=== PATIENT | female | born 1955 | race Caucasian/White ===

== ENCOUNTER 2018-01-29 16:54 | Inpatient (IN) | payer MEDICAID ==
[~2018-01-29] VITALS: Ht 160 cm; Wt 92.9 kg
[2018-01-29] MEDS ORDERED: SODIUM CHLORIDE 0.9% 1,000 ML IV ONE ×2 (17:07→18:46)
[2018-01-29] MEDS ORDERED: PLEASE ENTER HEIGHT AND WEIGHT MC SCH (17:30)
[2018-01-29] MEDS ORDERED: SODIUM CHLORIDE 0.9% 1,000ML IVBOLUS ONE ×2 (17:30→18:30)
[2018-01-29] MEDS ORDERED: NALOXONE 1 MG/ML, 2ML IVPush ONE (17:30)
[2018-01-29] MEDS: PLEASE ENTER ALLERGIES MC SCH (17:30)
[2018-01-29 17:45] LABS: BASOPHILS % (AUTO) 0 % (0-1); EOSINOPHILS # (AUTO) 0.01 x10^3/uL (0-0.4); EOSINOPHILS % (AUTO) 0 % (1-7); LYMPHOCYTES # (AUTO) 0.74 x10^3/uL (1-3.4); LYMPHOCYTES % (AUTO) 5 % (22-44); MD NO; MEAN CORPUSCULAR HEMOGLOBIN 29.7 pg (27.0-34.8); MEAN CORPUSCULAR HGB CONC 32.8 g/dL (32.4-35.8); MEAN CORPUSCULAR VOLUME 90.7 fL (80-100); MEAN PLATELET VOLUME 8.2 fL (7.4-10.4); MONOCYTES # (AUTO) 0.17 x10^3/uL (0.2-0.8); MONOCYTES % (AUTO) 1 % (2-9); NEUTROPHILS % (AUTO) 94 % (42-75); PLATELET COUNT 314 x10^3/uL (130-400); RED BLOOD COUNT 4.58 x10^6/uL (3.82-5.3); RED CELL DISTRIBUTION WIDTH 14.6 % (9.6-15.2)
[2018-01-29 17:47] LABS: ALANINE AMINOTRANSFERASE 20 U/L (12-78); ALBUMIN 3.7 g/dL (3.4-5.0); ANION GAP 6 mmol/L (5-15); CALCIUM 8.7 mg/dL (8.5-10.1); CHLORIDE 114 mmol/L (98-107); SALICYLATE LEVEL < 1.7 mg/dL (2.8-20.0)
[2018-01-29 17:51] LABS: ALKALINE PHOSPHATASE 103 U/L (45-117); BILIRUBIN,TOTAL 0.2 mg/dL (0.2-1.0); TOTAL PROTEIN 7.6 g/dL (6.4-8.2)
[2018-01-29] MEDS ORDERED: HYDR25CA PO (17:51)
[2018-01-29] MEDS ORDERED: BACL-19 PO (17:51)
[2018-01-29] MEDS ORDERED: TIOT18CA INH (17:51)
[2018-01-29 17:52] LABS: ACETAMINOPHEN < 2 mcg/mL (10-30)
[2018-01-29] MEDS ORDERED: NALOXONE 0.4 MG/ML, 1ML IVPush ONE (18:00)
[2018-01-29] MEDS ORDERED: NALOXONE 2 MG in SODIUM CHLORIDE 0.9% 250 ML IV SCH (18:00)
[2018-01-29] MEDS ORDERED: SODIUM CHLORIDE FLUSH 10ML SYR IVF PRN (19:00)
[2018-01-29] MEDS ORDERED: ONDANSETRON ODT 4 MG PO PRN (19:30)
[2018-01-29] MEDS ORDERED: morphine SULFATE 10 MG/ML, 1ML IVPush PRN (19:30)
[2018-01-29] MEDS ORDERED: BISACODYL 10 MG SUPP PR PRN (19:30)
[2018-01-29] MEDS ORDERED: ONDANSETRON 2MG/ML, 2ML IVPush PRN (19:30)
[2018-01-29] MEDS ORDERED: OXYcodone IR 5MG TABLET PO PRN (19:30)
[2018-01-29 19:43] LABS: FREE T4 (FREE THYROXINE) 1.05 ng/dL (0.76-1.46); THYROID STIMULATING HORMONE 5.08 mIU/L (0.358-3.740)
[2018-01-29 19:46] LABS: HEMOGLOBIN A1C 5.9 % (4.2-6.3)
[2018-01-29 19:52] LABS: MICROSCOPIC INDICATED
[2018-01-29] MEDS ORDERED: NALOXONE 4 MG in SODIUM CHLORIDE 0.9% 246 ML IV SCH (20:00)
[2018-01-29 20:01] LABS: CULTURE INDICATED? NO
[2018-01-29 20:10] LABS: AMPHETAMINE SCREEN, URINE Negative (Negative); BARBITURATE SCREEN, URINE Negative (Negative); BENZODIAZEPINE SCREEN, URINE Negative (Negative); CANNABINOID SCREEN, URINE Negative (Negative); COCAINE SCREEN, URINE Negative (Negative); METHADONE SCREEN, URINE Negative (Negative); OPIATE SCREEN, URINE Positive (Negative)
[2018-01-29 21:00] VITALS: BP 131/63
[2018-01-29] MEDS: SODIUM CHLORIDE 0.9% 1,000 ML IV SCH (21:43)
[2018-01-29] MEDS: ACETAMINOPHEN 325 MG TABLET PO PRN (21:44)
[2018-01-29] MEDS: SODIUM CHLORIDE 0.9% IV SCH (21:46)
[2018-01-29] MEDS: NALOXONE IV SCH (21:46)
[2018-01-29] MEDS: HEPARIN 5,000 UNITS/ML, 1ML SQ SCH (21:46)
[2018-01-30] MEDS: PLEASE ENTER ALLERGIES MC SCH (01:30)
[2018-01-30] MEDS: HEPARIN 5,000 UNITS/ML, 1ML SQ SCH ×3 (03:35→19:55)
[2018-01-30] MEDS: NALOXONE IV SCH ×2 (03:46→08:08)
[2018-01-30] MEDS: SODIUM CHLORIDE 0.9% IV SCH ×2 (03:46→08:08)
[2018-01-30] MEDS: SODIUM CHLORIDE 0.9% 1,000 ML IV SCH (03:47)
[2018-01-30 03:50] VITALS: BP 160/81
[2018-01-30 04:50] LABS: ALANINE AMINOTRANSFERASE 18 U/L (12-78); ALBUMIN 3.1 g/dL (3.4-5.0); ANION GAP 7 mmol/L (5-15); CALCIUM 8.2 mg/dL (8.5-10.1); CHLORIDE 117 mmol/L (98-107)
[2018-01-30 04:53] LABS: ALKALINE PHOSPHATASE 88 U/L (45-117); BILIRUBIN,TOTAL 0.3 mg/dL (0.2-1.0); CHOL/HDL RATIO 3.1; CHOLESTEROL, TOTAL 131 mg/dL (140-239); CREATININE 1.25 mg/dL (0.55-1.02); HDL CHOL % 32 % (28-40); HDL CHOLESTEROL (DIRECT) 42 mg/dL (40-60); LDL CHOLESTEROL,CALCULATED 64 mg/dL (54-169); LDL/HDL RATIO 1.5 (0.5-3.0); TOTAL PROTEIN 6.4 g/dL (6.4-8.2); TRIGLYCERIDES 126 mg/dL (50-200); VLDL CHOLESTEROL 25 mg/dL (0-25)
[2018-01-30 05:07] LABS: BASOPHILS # (AUTO) 0.04 x10^3/uL (0-0.1); BASOPHILS % (AUTO) 0 % (0-1); EOSINOPHILS # (AUTO) 0.07 x10^3/uL (0-0.4); EOSINOPHILS % (AUTO) 1 % (1-7); LYMPHOCYTES # (AUTO) 2.74 x10^3/uL (1-3.4); LYMPHOCYTES % (AUTO) 22 % (22-44); MD NO; MEAN CORPUSCULAR HEMOGLOBIN 29.9 pg (27.0-34.8); MEAN CORPUSCULAR HGB CONC 32.7 g/dL (32.4-35.8); MEAN CORPUSCULAR VOLUME 91.5 fL (80-100); MEAN PLATELET VOLUME 8.1 fL (7.4-10.4); MONOCYTES # (AUTO) 0.82 x10^3/uL (0.2-0.8); MONOCYTES % (AUTO) 7 % (2-9); NEUTROPHILS # (AUTO) 8.61 x10^3/uL (1.8-6.8); NEUTROPHILS % (AUTO) 70 % (42-75); PLATELET COUNT 259 x10^3/uL (130-400); RED BLOOD COUNT 3.93 x10^6/uL (3.82-5.3); RED CELL DISTRIBUTION WIDTH 14.3 % (9.6-15.2)
[2018-01-30] MEDS: IPRATROPIUM 0.5 MG/2.5 ML INHA NPPB SCH ×3 (07:25→19:14)
[2018-01-30] MEDS: SENNA/DOCUSATE TABLET PO SCH (09:00)
[2018-01-30] MEDS ORDERED: NALOXONE 0.4 MG/ML, 1ML IVPush PRN (17:30)
[2018-01-31] VITALS (8 sets, daily range): BP systolic 129–186; BP diastolic 63–99
[2018-01-31] MEDS: HEPARIN 5,000 UNITS/ML, 1ML SQ SCH ×3 (03:51→19:52)
[2018-01-31 05:41] LABS: BASOPHILS # (AUTO) 0.03 x10^3/uL (0-0.1); BASOPHILS % (AUTO) 0 % (0-1); EOSINOPHILS # (AUTO) 0.33 x10^3/uL (0-0.4); EOSINOPHILS % (AUTO) 3 % (1-7); LYMPHOCYTES # (AUTO) 2.47 x10^3/uL (1-3.4); LYMPHOCYTES % (AUTO) 25 % (22-44); MD NO; MEAN CORPUSCULAR HEMOGLOBIN 29.7 pg (27.0-34.8); MEAN CORPUSCULAR HGB CONC 32.5 g/dL (32.4-35.8); MEAN CORPUSCULAR VOLUME 91.4 fL (80-100); MEAN PLATELET VOLUME 8.5 fL (7.4-10.4); MONOCYTES # (AUTO) 0.64 x10^3/uL (0.2-0.8); MONOCYTES % (AUTO) 6 % (2-9); NEUTROPHILS # (AUTO) 6.53 x10^3/uL (1.8-6.8); NEUTROPHILS % (AUTO) 65 % (42-75); PLATELET COUNT 248 x10^3/uL (130-400); RED BLOOD COUNT 4.03 x10^6/uL (3.82-5.3); RED CELL DISTRIBUTION WIDTH 14.8 % (9.6-15.2)
[2018-01-31 05:47] LABS: ALBUMIN 3.1 g/dL (3.4-5.0); ANION GAP 7 mmol/L (5-15); CALCIUM 8.3 mg/dL (8.5-10.1); CHLORIDE 111 mmol/L (98-107)
[2018-01-31 05:58] LABS: ALANINE AMINOTRANSFERASE 17 U/L (12-78); ALKALINE PHOSPHATASE 93 U/L (45-117); BILIRUBIN,TOTAL 0.3 mg/dL (0.2-1.0); CREATININE 0.93 mg/dL (0.55-1.02); TOTAL PROTEIN 6.5 g/dL (6.4-8.2)
[2018-01-31] MEDS ORDERED: ENAL20TA PO (08:13)
[2018-01-31] MEDS ORDERED: AMLO10TA2 PO (08:16)
[2018-01-31] MEDS ORDERED: simvastatin PO (08:18)
[2018-01-31] MEDS ORDERED: ZOLP10TA PO (08:18)
[2018-01-31] MEDS: hydrALAzine 20 MG/ML, 1ML IVPush PRN ×2 (08:25→19:51)
[2018-01-31] MEDS: SENNA/DOCUSATE TABLET PO SCH (08:27)
[2018-01-31] MEDS: AMLODIPINE 5 MG TABLET PO SCH (10:01)
[2018-01-31] MEDS: ENALAPRIL 20MG TABLET PO SCH (10:01)
[2018-01-31] MEDS: IPRATROPIUM 0.5 MG/2.5 ML INHA NPPB SCH ×3 (10:20→21:35)
[2018-01-31] MEDS: ACETAMINOPHEN 325 MG TABLET PO PRN (14:24)
[2018-01-31] MEDS: POLYETHYLENE GLYCOL 17 GM PACKET PO PRN (14:24)
[2018-01-31] MEDS ORDERED: TRAZODONE 50MG TABLET PO PRN (18:30)
[2018-01-31] MEDS: BACLOFEN 10 MG TABLET PO PRN (20:18)
[2018-02-01 00:31] VITALS: BP 129/78
[2018-02-01] MEDS: IPRATROPIUM 0.5 MG/2.5 ML INHA NPPB SCH ×2 (03:00→09:32)
[2018-02-01] MEDS: HEPARIN 5,000 UNITS/ML, 1ML SQ SCH ×2 (03:38→12:04)
[2018-02-01] MEDS: ACETAMINOPHEN 325 MG TABLET PO PRN (03:40)
[2018-02-01 07:25] VITALS: BP 145/76
[2018-02-01] MEDS: POLYETHYLENE GLYCOL 17 GM PACKET PO PRN (08:42)
[2018-02-01] MEDS: BACLOFEN 10 MG TABLET PO PRN (08:42)
[2018-02-01] MEDS: SENNA/DOCUSATE TABLET PO SCH (08:42)
[2018-02-01] MEDS: ENALAPRIL 20MG TABLET PO SCH (08:42)
[2018-02-01] MEDS: AMLODIPINE 5 MG TABLET PO SCH (08:42)
[2018-02-01 14:00] VITALS: BP 136/73
== END 2018-02-01 14:15 | disposition home or self-care (01) | DRG 917 ==
LOC: ED 17:57 → EDIP 18:46 → CCU 20:11 → ICU 01-30 16:54 → 4NOR 01-30 23:55
PROVIDERS: ADMIT Internal Medicine; ATTEND Internal Medicine
DX: T42.8X1A Poisoning by antiparkinsonism drugs and other central muscle-tone depressants, accidental (unintentional), initial encounter (principal); J96.00 Acute respiratory failure, unspecified whether with hypoxia or hypercapnia; G92 Toxic encephalopathy; F41.9 Anxiety disorder, unspecified; D72.829 Elevated white blood cell count, unspecified; M54.9 Dorsalgia, unspecified; J44.9 Chronic obstructive pulmonary disease, unspecified; M62.838 Other muscle spasm; G47.00 Insomnia, unspecified; F15.90 Other stimulant use, unspecified, uncomplicated; F11.90 Opioid use, unspecified, uncomplicated; Y92.89 Other specified places as the place of occurrence of the external cause
CPT/HCPCS: 36415; 70450; 71045; 80053; 80061; 80307; 80329; 81001; 82140; 82375; 82550; 83036; 83735; 84100; 84439; 84443; 85025; 87081; 93005; 94640; 96361; 96365; 96376; J1644; J2310; J7644; Q0162; G0480; J0360; J7030; J7050

== ENCOUNTER 2018-02-03 15:31 | Inpatient (IN) | payer MEDICAID ==
[~2018-02-03] VITALS: Ht 162.6 cm; Wt 90.4 kg
[~2018-02-03 15:31] MED LIST: AMLO10TA2 PO; BACL-19 PO; ENAL20TA PO; HYDR25CA PO; TIOT18CA INH; ZOLP10TA PO; simvastatin PO
[2018-02-03 16:27] LABS: BASOPHILS # (AUTO) 0.09 x10^3/uL (0-0.1); BASOPHILS % (AUTO) 1 % (0-1); EOSINOPHILS # (AUTO) 0.06 x10^3/uL (0-0.4); EOSINOPHILS % (AUTO) 0 % (1-7); LYMPHOCYTES # (AUTO) 1.36 x10^3/uL (1-3.4); LYMPHOCYTES % (AUTO) 10 % (22-44); MD NO; MEAN CORPUSCULAR HEMOGLOBIN 29.7 pg (27.0-34.8); MEAN CORPUSCULAR HGB CONC 32.8 g/dL (32.4-35.8); MEAN CORPUSCULAR VOLUME 90.5 fL (80-100); MEAN PLATELET VOLUME 8.5 fL (7.4-10.4); MONOCYTES # (AUTO) 0.93 x10^3/uL (0.2-0.8); MONOCYTES % (AUTO) 7 % (2-9); NEUTROPHILS # (AUTO) 11.55 x10^3/uL (1.8-6.8); NEUTROPHILS % (AUTO) 83 % (42-75); PLATELET COUNT 284 x10^3/uL (130-400); RED BLOOD COUNT 4.18 x10^6/uL (3.82-5.3); RED CELL DISTRIBUTION WIDTH 14.1 % (9.6-15.2)
[2018-02-03 16:29] LABS: ALBUMIN 3.8 g/dL (3.4-5.0); ANION GAP 9 mmol/L (5-15); CHLORIDE 106 mmol/L (98-107)
[2018-02-03 16:33] LABS: ALANINE AMINOTRANSFERASE 45 U/L (12-78); ALKALINE PHOSPHATASE 105 U/L (45-117); BILIRUBIN,TOTAL 0.4 mg/dL (0.2-1.0); CREATININE 2.47 mg/dL (0.55-1.02); SALICYLATE LEVEL < 1.7 mg/dL (2.8-20.0); TOTAL PROTEIN 7.5 g/dL (6.4-8.2)
[2018-02-03 16:34] LABS: ACETAMINOPHEN < 2 mcg/mL (10-30)
[2018-02-03 16:43] LABS: CULTURE INDICATED? YES; MICROSCOPIC INDICATED
[2018-02-03] MEDS ORDERED: SODIUM CHLORIDE 0.9% 1,000 ML IV ONE (16:47)
[2018-02-03 16:53] LABS: AMPHETAMINE SCREEN, URINE Negative (Negative); BARBITURATE SCREEN, URINE Negative (Negative); BENZODIAZEPINE SCREEN, URINE Negative (Negative); CANNABINOID SCREEN, URINE Negative (Negative); COCAINE SCREEN, URINE Negative (Negative); METHADONE SCREEN, URINE Negative (Negative); OPIATE SCREEN, URINE Positive (Negative)
[2018-02-03] MEDS ORDERED: SODIUM CHLORIDE 0.9% 1,000ML IVBOLUS ONE (17:00)
[2018-02-03] MEDS ORDERED: POLYETHYLENE GLYCOL 17 GM PACKET PO PRN (18:30)
[2018-02-03] MEDS ORDERED: BISACODYL 10 MG SUPP PR PRN (18:30)
[2018-02-03] MEDS ORDERED: ACETAMINOPHEN 325 MG TABLET PO PRN (18:30)
[2018-02-03] MEDS ORDERED: DOCUSATE 100 MG CAPSULE PO PRN (18:30)
[2018-02-03] MEDS ORDERED: ONDANSETRON 2MG/ML, 2ML IVPush PRN (18:30)
[2018-02-03] MEDS ORDERED: hydrALAzine 20 MG/ML, 1ML ONE (18:53)
[2018-02-03] MEDS: hydrALAzine 20 MG/ML, 1ML IVPush PRN (18:58)
[2018-02-03 23:46] VITALS: BP 153/86
[2018-02-04] MEDS: NS + 20MEQ KCL 1,000 ML IV SCH ×3 (00:56→21:53)
[2018-02-04 01:46] VITALS: BP 132/68
[2018-02-04 04:03] VITALS: BP 138/82
[2018-02-04 05:47] LABS: BASOPHILS # (AUTO) 0.05 x10^3/uL (0-0.1); BASOPHILS % (AUTO) 1 % (0-1); EOSINOPHILS # (AUTO) 0.12 x10^3/uL (0-0.4); EOSINOPHILS % (AUTO) 1 % (1-7); LYMPHOCYTES # (AUTO) 1.96 x10^3/uL (1-3.4); LYMPHOCYTES % (AUTO) 21 % (22-44); MD NO; MEAN CORPUSCULAR HEMOGLOBIN 29.7 pg (27.0-34.8); MEAN CORPUSCULAR HGB CONC 33.2 g/dL (32.4-35.8); MEAN CORPUSCULAR VOLUME 89.4 fL (80-100); MEAN PLATELET VOLUME 8.4 fL (7.4-10.4); MONOCYTES # (AUTO) 0.78 x10^3/uL (0.2-0.8); MONOCYTES % (AUTO) 9 % (2-9); NEUTROPHILS # (AUTO) 6.28 x10^3/uL (1.8-6.8); NEUTROPHILS % (AUTO) 68 % (42-75); PLATELET COUNT 268 x10^3/uL (130-400); RED BLOOD COUNT 3.95 x10^6/uL (3.82-5.3); RED CELL DISTRIBUTION WIDTH 14.3 % (9.6-15.2)
[2018-02-04 05:54] LABS: ALANINE AMINOTRANSFERASE 37 U/L (12-78); ALBUMIN 3.1 g/dL (3.4-5.0); ANION GAP 7 mmol/L (5-15); CALCIUM 8.6 mg/dL (8.5-10.1); CHLORIDE 111 mmol/L (98-107); CREATININE 1.17 mg/dL (0.55-1.02)
[2018-02-04 05:56] LABS: ALKALINE PHOSPHATASE 91 U/L (45-117); BILIRUBIN,TOTAL 0.5 mg/dL (0.2-1.0); CREATINE KINASE, TOTAL 712 U/L (26-192); TOTAL PROTEIN 6.6 g/dL (6.4-8.2)
[2018-02-04] MEDS: HEPARIN 5,000 UNITS/ML, 1ML SQ SCH ×3 (05:59→21:29)
[2018-02-04 07:13] VITALS: BP 145/86
[2018-02-04] MEDS: AMLODIPINE 5 MG TABLET PO SCH (08:41)
[2018-02-04] MEDS: FLUTICASONE/VILANTEROL 200-25MCG/INH INH SCH (08:42)
[2018-02-04] MEDS: ENALAPRIL 20MG TABLET PO SCH (08:42)
[2018-02-04 13:10] VITALS: BP 189/98
[2018-02-04] MEDS: HYDROXYZINE PAMOATE 25MG CAP PO PRN (13:11)
[2018-02-04] MEDS: hydrALAzine 20 MG/ML, 1ML IVPush PRN ×2 (13:17→22:38)
[2018-02-04 21:58] VITALS: BP 173/94
[2018-02-04 23:53] VITALS: BP 169/91
[2018-02-05 03:15] VITALS: BP 184/88
[2018-02-05] MEDS: hydrALAzine 20 MG/ML, 1ML IVPush PRN (03:26)
[2018-02-05] MEDS: HYDROXYZINE PAMOATE 25MG CAP PO PRN ×2 (03:26→18:07)
[2018-02-05 04:37] VITALS: BP 169/97
[2018-02-05 05:51] LABS: ANION GAP 9 mmol/L (5-15); CHLORIDE 112 mmol/L (98-107)
[2018-02-05 05:52] LABS: CALCIUM 9.2 mg/dL (8.5-10.1); CREATININE 0.79 mg/dL (0.55-1.02)
[2018-02-05] MEDS: HEPARIN 5,000 UNITS/ML, 1ML SQ SCH ×3 (06:28→21:15)
[2018-02-05 08:51] VITALS: BP 175/83
[2018-02-05] MEDS: ENALAPRIL 20MG TABLET PO SCH (08:57)
[2018-02-05] MEDS: FLUTICASONE/VILANTEROL 200-25MCG/INH INH SCH (08:57)
[2018-02-05] MEDS: AMLODIPINE 5 MG TABLET PO SCH (08:57)
[2018-02-05 13:50] VITALS: BP 142/84
[2018-02-05 18:55] VITALS: BP 143/89
[2018-02-06 01:35] VITALS: BP 148/90
[2018-02-06 05:49] LABS: CHLORIDE 111 mmol/L (98-107)
[2018-02-06 05:57] LABS: ANION GAP 8 mmol/L (5-15); CALCIUM 8.7 mg/dL (8.5-10.1); CREATININE 0.86 mg/dL (0.55-1.02)
[2018-02-06] MEDS: HEPARIN 5,000 UNITS/ML, 1ML SQ SCH (06:36)
[2018-02-06 07:38] VITALS: BP 163/83
[2018-02-06] MEDS: FLUTICASONE/VILANTEROL 200-25MCG/INH INH SCH (08:33)
[2018-02-06] MEDS: HYDROXYZINE PAMOATE 25MG CAP PO PRN (08:33)
[2018-02-06] MEDS: AMLODIPINE 5 MG TABLET PO SCH (08:33)
[2018-02-06] MEDS: ENALAPRIL 20MG TABLET PO SCH (08:33)
== END 2018-02-06 12:22 | disposition home or self-care (01) | DRG 917 ==
LOC: ED 17:11 → EDIP 17:12 → ED 17:12 → 5SO 23:46 → DCLOUNGE 02-06 12:08
PROVIDERS: ADMIT Internal Medicine; ATTEND Internal Medicine
DX: T40.2X1A Poisoning by other opioids, accidental (unintentional), initial encounter (principal); G93.41 Metabolic encephalopathy; J96.21 Acute and chronic respiratory failure with hypoxia; N17.0 Acute kidney failure with tubular necrosis; M62.82 Rhabdomyolysis; R00.8 Other abnormalities of heart beat; D72.829 Elevated white blood cell count, unspecified; E78.5 Hyperlipidemia, unspecified; J44.9 Chronic obstructive pulmonary disease, unspecified; N18.9 Chronic kidney disease, unspecified; G89.29 Other chronic pain; M54.9 Dorsalgia, unspecified; Y92.89 Other specified places as the place of occurrence of the external cause; Z99.81 Dependence on supplemental oxygen; Z83.3 Family history of diabetes mellitus; Z87.891 Personal history of nicotine dependence
CPT/HCPCS: 36415; 36600; 71045; 80048; 80053; 80307; 80329; 81001; 82140; 82550; 82803; 82962; 83735; 85025; 87086; 93005; 96361; 96374; J1644; J3480; G0480; J0360; J7030